=== PATIENT | female | born 1970 | race Caucasian/White ===

== ENCOUNTER 2022-10-07 22:33 | Outpatient (OUT) | payer OTHER, SELFPAY | END 2022-10-07 22:34 | disposition home or self-care (01) | LOC: SLEEP 22:33 | PROVIDERS: PCP Family Medicine; Visit Provider Family Medicine | DX: G47.33 Obstructive sleep apnea (adult) (pediatric) (principal) | CPT/HCPCS: 95810 ==

== ENCOUNTER 2022-12-10 22:41 | Outpatient (OUT) | payer OTHER, SELFPAY | END 2022-12-10 22:42 | disposition home or self-care (01) | LOC: SLEEP 22:41 | PROVIDERS: PCP Family Medicine; Visit Provider Family Medicine | DX: G47.33 Obstructive sleep apnea (adult) (pediatric) (principal) | CPT/HCPCS: 95811 ==